=== PATIENT | male | born 1975 | race Asian ===

== ENCOUNTER 2016-04-19 23:55 | Emergency (ER) | payer OTHER ==
[2016-04-19] MEDS ORDERED: OPTIRAY 350 100 ML VIAL HMH IV ONE (23:56)
[2016-04-20] MEDS ORDERED: ALU/MAG/SIM 30 ML UDC ONE (01:08)
[2016-04-20] MEDS ORDERED: LIDOCAINE 2% VISC 15 ML UDC ONE (01:08)
[2016-04-20] MEDS ORDERED: DILAUDID 1 MG/ML AMP ONE (01:08)
[2016-04-20] MEDS ORDERED: ONDANSETRON 4 MG VIAL ONE (01:08)
[2016-04-20] MEDS ORDERED: SODIUM CHLORIDE 0.9% 1,000 ML ONE (01:08)
== END 2016-04-20 04:28 | disposition home or self-care (01) ==
LOC: ER 23:55
DX: R10.13 Epigastric pain (principal); R10.33 Periumbilical pain; R10.84 Generalized abdominal pain; K92.2 Gastrointestinal hemorrhage, unspecified
CPT/HCPCS: 36415; 74177; 80053; 81003; 82553; 83690; 84484; 85025; 93005; 96361; 96374; 96375; 99285; J1170; J2405; Q9967

== ENCOUNTER 2016-04-20 22:20 | Emergency (ER) | payer OTHER ==
[2016-04-20] MEDS ORDERED: DICYCLOMINE 20MG/2ML VIAL IM ONE (23:05)
[2016-04-20] MEDS ORDERED: KETOROLAC 30 MG/ML VIAL ONE (23:19)
[2016-04-20] MEDS ORDERED: SODIUM CHLORIDE 0.9% 1,000 ML ONE (23:19)
== END 2016-04-21 00:50 | disposition home or self-care (01) ==
LOC: ER 22:20
DX: R10.13 Epigastric pain (principal); K29.00 Acute gastritis without bleeding
CPT/HCPCS: 36415; 74022; 76705; 80053; 81003; 82553; 83690; 84484; 85025; 93005; 96361; 96372; 96374; 99284; J0500; J1885

== ENCOUNTER 2016-04-25 07:16 | Observation (INO) | payer OTHER ==
[~2016-04-25] VITALS: Ht 170.2 cm; Wt 113.8 kg
[2016-04-25] MEDS ORDERED: PROPOFOL 50ML VIAL IV ONE (07:38)
[2016-04-25] MEDS ORDERED: SODIUM CHLORIDE 0.9% 1,000 ML ONE (09:32)
[2016-04-25] MEDS ORDERED: MORPHINE 4 MG/ML SYR ONE ×2 (10:20→13:31)
[2016-04-25] MEDS ORDERED: ONDANSETRON 4 MG VIAL ONE (10:20)
[2016-04-25] MEDS ORDERED: SODIUM CHLORIDE 0.9% 100 ML IV ONE (10:20)
[2016-04-25] MEDS ORDERED: PANTOPRAZOLE 40 MG VIAL IV ONE (10:20)
[2016-04-25] MEDS ORDERED: LACT RINGERS 1,000 ML IV SCH (11:00)
[2016-04-25] MEDS ORDERED: BISACODYL EC 5 MG TAB PO PRN (11:00)
[2016-04-25] MEDS ORDERED: BISACODYL 10 MG SUPP RECTAL PRN (11:00)
[2016-04-25] MEDS ORDERED: MORPHINE 4 MG/ML SYR IV PRN (11:00)
[2016-04-25] MEDS ORDERED: SALINE FLUSH 10 ML FLUSH PRN (11:00)
[2016-04-25] MEDS ORDERED: MAG HYDROX 30 ML UDC PO PRN (11:00)
[2016-04-25] MEDS ORDERED: MORPHINE 2 MG/ML SYR IV PRN (11:00)
[2016-04-25] MEDS ORDERED: ONDANSETRON 4 MG VIAL IV PRN (11:00)
[2016-04-25 14:25] VITALS: BP_SYST 144; BP_SYST 160
[2016-04-25 14:33] VITALS: RESP 18; TEMP 98.6
[2016-04-25] MEDS: PANTOPRAZOLE 80 MG in SODIUM CHLORIDE 0.9% 250 ML IV SCH ×2 (15:04→20:36)
[2016-04-25] MEDS: OXYCODONE/APAP 7.5/325 TAB PO PRN ×2 (15:25→21:33)
[2016-04-25 16:55] VITALS: Ht 170.2 cm; Wt 113.8 kg
[2016-04-25 16:59] VITALS: RESP 14
[2016-04-25 19:49] VITALS: BP_SYST 134; TEMP 98.7
[2016-04-25 19:50] VITALS: RESP 20
[2016-04-25] MEDS: SALINE FLUSH 10 ML FLUSH SCH (20:00)
[2016-04-25] MEDS ORDERED: MISSING DOSE XX ONE (20:20)
[2016-04-25] MEDS: MORPHINE 2 MG/ML SYR IV PRN (23:25)
[2016-04-25 23:35] VITALS: BP_SYST 142; RESP 20; TEMP 98.4
[2016-04-26] VITALS (9 sets, daily range): BP systolic 111–138; RESP 14–21; TEMP 97–98.9
[2016-04-26] MEDS: SODIUM CHLORIDE 0.9% FLUSH BAG 500 ML IV SCH (06:00)
[2016-04-26] MEDS: OXYCODONE/APAP 7.5/325 TAB PO PRN ×3 (06:41→20:34)
[2016-04-26] MEDS: PANTOPRAZOLE 80 MG in SODIUM CHLORIDE 0.9% 250 ML IV SCH (06:41)
[2016-04-26] MEDS: SALINE FLUSH 10 ML FLUSH SCH ×2 (07:25→20:34)
[2016-04-26] MEDS: MORPHINE 2 MG/ML SYR IV PRN (09:03)
[2016-04-26] MEDS ORDERED: MORPHINE 2 MG/ML SYR IV PRN ×2 (19:48→20:00)
[2016-04-27] VITALS (8 sets, daily range): BP systolic 112–128; RESP 14–20; TEMP 97.9–98.6
[2016-04-27] MEDS: SODIUM CHLORIDE 0.9% FLUSH BAG 500 ML IV SCH (06:00)
[2016-04-27] MEDS: OXYCODONE/APAP 7.5/325 TAB PO PRN (06:06)
[2016-04-27] MEDS ORDERED: PANTOPRAZOLE 20 MG TAB PO SCH (07:00)
[2016-04-27] MEDS: SALINE FLUSH 10 ML FLUSH SCH (09:50)
[2016-04-27] MEDS ORDERED: POLYETHYLENE GLYCOL 17 GM PACKET PO SCH (10:35)
[2016-04-27] MEDS ORDERED: BISACODYL 10 MG SUPP RECTAL PRN (10:35)
== END 2016-04-27 17:06 | disposition home or self-care (01) ==
LOC: ENRESERVTM → ENRESERVDT → CANRESERV → ER 07:16 → EMR 10:57 → ENPENDDIS 10:57 → 3NT 14:30
PROVIDERS: ADMIT Internal Medicine; ATTEND Internal Medicine
DX: R10.13 Epigastric pain (principal); D55.0 Anemia due to glucose-6-phosphate dehydrogenase [G6PD] deficiency; Z87.891 Personal history of nicotine dependence; Z79.1 Long term (current) use of non-steroidal anti-inflammatories (NSAID); M17.0 Bilateral primary osteoarthritis of knee
CPT/HCPCS: 36415; 43239; 80048; 80053; 81001; 83615; 83690; 85025; 85652; 86141; 88305; 96361; 96365; 96375; 96376; 99283; G0378; J2270; J2405; J2704; J7050; J7120; 94799; 99220; 99226; 99233; 99239